=== PATIENT | male | born 1970 | race Caucasian/White ===

== ENCOUNTER 2016-08-25 22:31 | Emergency (ER) | payer MEDICAID ==
[~2016-08-25] VITALS: Ht 182.9 cm; Wt 111.3 kg
[2016-08-25] MEDS ORDERED: HYDROmorphone 1 MG/ML, 1ML IM STA (23:23)
[2016-08-25] MEDS ORDERED: HYDROmorphone 1 MG/ML, 1ML ONE (23:25)
[2016-08-25] MEDS ORDERED: CEPH-376 PO (23:33)
[2016-08-26 00:46] VITALS: BP 129/72
== END 2016-08-26 00:48 | disposition home or self-care (01) ==
LOC: ED 23:59
DX: S83.411A Sprain of medial collateral ligament of right knee, initial encounter (principal); X58.XXXA Exposure to other specified factors, initial encounter; Y93.89 Activity, other specified; Y99.8 Other external cause status; Y92.410 Unspecified street and highway as the place of occurrence of the external cause
CPT/HCPCS: 73564; 96372; 99284; J1170

== ENCOUNTER 2018-11-10 14:00 | Emergency (ER) | payer MEDICAID ==
[~2018-11-10] VITALS: Ht 182.9 cm; Wt 121.6 kg
[2018-11-10 14:20] VITALS: BP 148/95
== END 2018-11-10 15:05 | disposition left against medical advice (07) ==
LOC: ED 14:59
DX: R07.89 Other chest pain (principal); R06.02 Shortness of breath; M79.661 Pain in right lower leg; V03.90XA Pedestrian on foot injured in collision with car, pick-up truck or van, unspecified whether traffic or nontraffic accident, initial encounter; Y93.89 Activity, other specified; Y92.89 Other specified places as the place of occurrence of the external cause; Y99.9 Unspecified external cause status
CPT/HCPCS: 36415; 80053; 85025; 99283